=== PATIENT | male | born 1950 | race Caucasian/White ===

== ENCOUNTER 2016-12-15 10:23 | Emergency (ER) | payer OTHER ==
[2016-12-15 11:04] VITALS: PULSE 69; RESP 18; TEMP 98.4; O2SAT 97
--- NOTE | 2016-12-15 11:25 | UCPHY ---
H & P Patient Type: Established Chief Complaint Nursing Narrative: bilateral arms red rash, weeping, 1 week. HPI/ROS: CHIEF COMPLAINT: Rash under History by patient HISTORY OF PRESENT ILLNESS: 66-year-old man with COPD presents complaining of bilateral arm rash which he describes as red, itchy and weepy which has been going on for a week since he mowed his lawn. It began with some small red papules and then rapidly sweat spread up his arm and his arms began to swell with some blistering and weeping of clear corinne liquid. He has had no fever, chills, nausea or vomiting. His palms are not involved. There is no oral lesions. There is no associated shortness of breath. Patient had an almost identical rash on his lower legs last fall after mowing the lawn. REVIEW OF SYSTEMS: As in HPI, and all other systems reviewed and are negative - Medical/Surgical History Hx Asthma: No Hx Chronic Respiratory Disease: No Hx Diabetes: No Hx Cardiac Disease: No Hx Renal Disease: No Hx Cirrhosis: No Hx Alcoholism: No Hx HIV/AIDS: No Hx Splenectomy or Spleen Trauma: No Other PMH: HTN/Hyperlipids - Family History Significant Family History: No pertinent family hx - Social History Smoking Status: Current every day smoker Constitutional: Initial Vital Signs Temperature (C) 36.9 C 12/15/16 10:51 Heart Rate 69 12/15/16 10:51 Respiratory Rate 18 12/15/16 10:51 Blood Pressure 174/119 H 12/15/16 10:51 O2 Sat (%) 97 12/15/16 10:51 O2 Delivery Mode Room Air Allergies/Adverse Reactions: No Known Allergies Allergy (Unverified 12/15/16 11:01) Home Medications: Medication Instructions Recorded Advair 100/50 (*) 06/16/16 Amlodipine Besylate 06/16/16 Clobetasol Propionate/Emoll 15 gm TP BID #1 tube 12/15/16 [Clobetasol Emollient 0.05% Crm] methylPREDNISolone [Medrol Dose 1 each PO AD #0 ea 12/15/16 Fabián] Medical Decision Making ED Course/Re-evaluation: 66-year-old man presents with bilateral weepy red swollen arms consistent with contact dermatitis. There is no evidence of infection or acute systemic toxicity. This is similar to a an episode he had in his legs in the fall when he had similar contact with grass. We will give him a trial of oral prednisone and topical steroids. I am also recommending follow-up with dermatology and tape recording machine operator. Departure - Departure Disposition: Home, Routine, Self-Care Clinical Impression: Contact dermatitis and eczema due to plant Condition: Fair Instructions: Contact Dermatitis (ED) Additional Instructions: You were seen by Dr. Nan Lloyd today. Return for any worsening or new concerns. Take steroids as prescribed. Use clobetasol cream as prescribed. Please follow up with a paper rewinder and/or category specialist. Referrals: Екатерина Martinez [Primary Care Provider] - As per Instructions Mark Pierre MD [Medical Doctor] - As per Instructions Marium Mario MD [[facility] [place]] - As per Instructions Prescriptions: Clobetasol Propionate/Emoll [Clobetasol Emollient 0.05% Crm] 15 gm TP BID #1 tube methylPREDNISolone [Medrol Dose Fabián] 1 each PO AD #0 ea - PQRS PQRS Measurement: NA
[2016-12-15 11:55] VITALS: BP 161/103
== END 2016-12-15 11:51 | disposition home or self-care (01) ==
LOC: CED 10:23
DX: L23.7 Allergic contact dermatitis due to plants, except food (principal); J44.9 Chronic obstructive pulmonary disease, unspecified; E78.5 Hyperlipidemia, unspecified; I10 Essential (primary) hypertension; F17.200 Nicotine dependence, unspecified, uncomplicated
CPT/HCPCS: G0463-PO